=== PATIENT | female | born 1980 | race African-American/Black ===

== ENCOUNTER → 2021-11-17 12:59 | Outpatient (BNVA) | payer MEDICARE, MEDICAID, SELFPAY | PROVIDERS: PCP Physician Assistant Medical; Visit Provider Psychiatry & Neurology Neurology | DX: P14.0 Erb's paralysis due to birth injury (principal); F48.8 Other specified nonpsychotic mental disorders | CPT/HCPCS: 99202 ==

== ENCOUNTER 2024-07-16 12:57 | Inpatient (IN) | payer MEDICARE, MEDICAID, SELFPAY ==
[2024-07-16 13:03] VITALS: BP 110/68; PULSE 72; RESP 19; TEMP 36.6; O2SAT 98; BMI 34.1
--- NOTE | 2024-07-16 13:04 | ED_ITS ---
HPI - General Adult General Chief complaint: Psychiatric Symptoms Stated complaint: depression, SI Time Seen by Provider: 07/16/24 13:25 Source: patient, RN notes reviewed and old records reviewed Mode of arrival: ambulatory Limitations: no limitations History of Present Illness ED Provider: Fidelina ALLEN narrative: Patient is a 43-year-old female with history of DM, bipolar 1 disorder, Erbs paralysis, anemia, depression presenting to the emergency department with complaint of depression and suicidal ideation for the past few weeks, worsening over the weekend. States that she had to call the suicide hotline several times on Tuesday. Saw primary care provider this morning who felt patient should present to the emergency department. Patient reports recent inpatient admission for depression at [facility] around 1 week ago. She did not feel that admission was helpful. She also states that she was started on Wellbutrin 2 weeks ago but discontinued this on her own as she felt it was worsening her depression, reports has been compliant with her other medications. Denies homicidal ideation, auditory or visual hallucinations. Denies any physical complaints. MD complaint: depression, suicidal ideation Onset (ago): week(s) Related Data Home Medications ?Medication ?Instructions ?Recorded ?Confirmed amantadine HCl 100 mg capsule 100 mg PO BID 11/17/21 11/17/21 insulin glargine 100 unit/mL (3 unit subcut 11/17/21 11/17/21 mL) subcutaneous pen (Lantus Solostar U-100 Insulin) lisinopril 20 mg tablet 20 mg PO DAILY 11/17/21 11/17/21 metformin 1,000 mg tablet 1,000 mg PO BID 11/17/21 11/17/21 pen needle, diabetic 32 gauge x #50 ea 11/17/21 11/17/21 (BD Ira 2nd Gen Pen Needle) Allergies Allergy/AdvReac Type Severity Reaction Status Date / Time cat dander [CATS] Allergy Unknown Unknown Verified 07/16/24 13:03 HAYFEVER Allergy Unknown Unknown Uncoded 07/16/24 13:03 Review of Systems 2 Review of Systems: As per HPI Yes all other systems are reviewed and are negative Constitutional: Constitutional: Reports as per HPI [facility] Past Medical History Medical History (Updated 07/16/24 @ 15:34 by Kwasi Loyola DO) Tardive dyskinesia Anemia 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 Diabetes Bipolar 1 disorder Depression Aftercare following left ankle joint replacement surgery Family History Family History Mother Kidney disease Father Pacemaker Social History Social History Alcohol intake: never Patient Tobacco Use Status: Never used Tobacco Advance Directives: No Advance Directives Information Provided: No Do you have a plan to hurt others: No Plan Physical Exam ED Vital Signs: Vital Signs - 24 hr 07/16/24 13:03 07/16/24 13:26 Temperature 98 F 97.7 F Pulse Rate 72 82 Respiratory Rate 19 16 Blood Pressure 110/68 113/71 Pulse Oximetry 98 100 Oxygen Delivery Method Room Air Room Air BMI result Body Mass Index 34.1 Vital signs have been reviewed and appear to be correct. Blood pressure normal. Heart rate normal. Respiratory rate normal. Temperature normal. Oxygen saturation normal. Const General: cooperative, healthy appearing and no acute distress Orientation/consciousness: oriented to person, oriented to place, oriented to time and patient oriented x3 Limitations: no limitations HENMT Head: Yes normocephalic and Yes atraumatic Ears: external ears normal General nose exam: Normal external nose present Face and sinus: Yes face symmetric Mouth: oropharynx normal and moist mucous membranes Throat: Yes uvula midline Eyes Pupils: Equal, round and reactive pupils present Neck Neck: Yes normal visual inspection and Yes supple Resp Effort & Inspection: normal respiratory effort and able to speak in complete sentences Auscultation: clear to auscultation bilaterally Cardio Rate: regular rate Rhythm: regular rhythm Heart sounds: S1 normal heart sound present and S2 normal heart sound present GI Palpation (GI): Soft to palpation and nontender Auscultation: normoactive bowel sounds General: Yes no CVA tenderness Back/Spine/Pelvis Back: no CVA tenderness Skin General skin exam: elasticity normal and turgor normal Neuro General: oriented to person, oriented to place, oriented to time, patient oriented x3, moves all extremities, no focal motor deficits and CN's II-XI intact bilaterally Cranial nerves: Yes Equal, round and reactive pupils present Cognition (Neuro): normal cognition Extrem General: Yes full ROM, Yes no pedal edema and Yes no calf tenderness Psych Appearance: grossly normal Mental Status: mental status grossly normal Speech and movement: Normal speech and movement present Affect: Sad affect present and Blunted affect present Attitude: cooperative Thought process: Normal thought process present Thought content: Suicidality present, no homicidality, no delusions and no hallucinations Insight: Fair insight present (Psych) Judgement: Fair judgement present (Psych) Course Course Course Narrative: RME, this is a rapid medical exam performed by Andrew Escudero please refer to primary provider for complete H&P- 43 year old female presents for evaluation of depression with SI. Plan for medical clearance and care team consult Medical Decision Making Medical Decision Making [facility] Narrative: Patient is a 43-year-old female with history of DM, bipolar 1 disorder, Erbs paralysis, anemia, depression presenting to the emergency department with complaint of depression and suicidal ideation for the past few weeks, worsening over the weekend. On exam patient is awake, A+Ox3, VS WNL, afebrile, normal neurological exam without focal deficits, physical exam findings as above. Given reported symptoms and physical exam findings, initial differential includes but is not limited to depression, adverse medication reaction, suicidal ideation. Plan for medical clearance then CARE team evaluation. Labs unremarkable. Will medically clear patient for CARE team eval and place on physician observation. Differential Diagnosis Differential Diagnoses: The differential diagnosis associated with the presentation includes as per [facility] Admission/Observation Consideration of admission/observation: Escalation of care including admission/observation considered Consult Healthcare Provider Management of the patient was discussed with: Behavioral Health Provider Lab Data [facility] Lab Attestation statement: I reviewed the patient's lab results. as per [facility] 07/16/24 13:36 07/16/24 13:36 Labs: Lab Results 07/16/24 Range/Units 13:36 WBC 4.9 (4.8-10.8) X10*3/uL RBC 4.58 (4.20-5.50) X10*6/uL Hgb 12.5 (12.0-16.0) g/dl Hct 38.1 (37.0-47.0) % MCV 83.2 (80.0-98.0) fL MCH 27.3 (27.0-33.0) pg MCHC 32.8 (31.0-35.0) g/dl RDW 15.4 (11.0-16.0) % Plt Count 216 (160-400) X10*3/uL MPV 10.6 (9.4-12.3) fL Immature Gran % (Auto) 0.2 (0.0-0.4) % Neut % (Auto) 51.6 (45-73) % Lymph % (Auto) 36.3 (20-40) % [place] % (Auto) 8.2 (2-11) % Eos % (Auto) 3.1 (0-4) % Baso % (Auto) 0.6 (0-2) % Lymph # (Auto) 1.8 (1.2-4.9) X10*3/uL [place] # (Auto) 0.4 (0.1-1.2) X10*3/uL Eos # (Auto) 0.2 (0.0-0.4) X10*3/uL Baso # (Auto) 0.0 (0.0-0.2) X10*3/uL Abs Immat Gran (auto) 0.01 (0.00-0.03) X10*3/uL Absolute Neuts (auto) 2.5 (2.0-8.3) x10*3/uL Absolute Nucleated RBC 0.000 (0.0-0.012) X10*3/uL Nucleated RBC % (auto) 0.0 (0.0-0.2) /100WBC Sodium 139 (135-145) mmol/L Potassium 3.7 (3.3-5.1) mmol/L Chloride 106 (96-108) mmol/L Carbon Dioxide 25 (22-29) mmol/L Anion Gap 12 (12-20) BUN 11 (9-16) mg/dL Creatinine 0.92 (0.5-1.4) mg/dL Estim Creat Clear Calc 94.2 Estimated GFR > 60 Random Glucose 78 (60-115) mg/dL Calcium 9.0 (8.4-10.2) mg/dL Total Bilirubin 0.4 (0.0-1.0) mg/dL AST 27 (5-31) U/L ALT 32 H (0-31) U/L Alkaline Phosphatase 52 (39-117) U/L Total Protein 6.9 (6.5-8.0) g/dL Albumin 4.1 (3.5-5.0) g/dL Salicylates < 5.0 L (15-30) mg/dL Acetaminophen < 3 (<30) mcg/mL Ethyl Alcohol < 10 mg/dL External Record Review External record reviewed: Inpatient record, Office record and Outpatient record Discharge Plan Discharge Clinical Impression: Depression, Bipolar 1 disorder, Suicidal ideation Prescriptions: No Action metformin 1,000 mg tablet 1,000 mg PO BID amantadine HCl 100 mg capsule 100 mg PO BID insulin glargine [Lantus Solostar U-100 Insulin] 100 unit/mL (3 mL) insulin pen subcut lisinopril 20 mg tablet 20 mg PO DAILY (DME) pen needle, diabetic [BD Ira 2nd Gen Pen Needle] 32 gauge x 5/32 needle See Rx Instructions .ROUTE .MEDSUPPLY Qty: 50 Rx Instructions: As directed Interventions: [place]-Suicide Risk Severity Scale Last Done: 07/16/24 13:26 Print Language: Greenlandic
[2024-07-16 13:26] VITALS: BP 113/71; PULSE 82; RESP 16; TEMP 36.5; O2SAT 100
--- NOTE | 2024-07-16 13:31 | PC.NURSE ---
Addendum entered by Elyssa Holguin RN 07/16/24 13:43: Patient presents from home with increased depression and vague suicidal thoughts. Contracts for safety in this environment. Recently started taking wellbutrin 2 weeks ago which she states increased her depression. Alert and oriented, cooperative with care. Respirations even and non-labored. Abdomen soft, non-tender with positive bowel sounds. Lunch provided. Positive pedal pulses with no edema. Pending care team eval. 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
[2024-07-16 13:43] LABS: MANUAL DIFF FLAG NO
[2024-07-16 13:44] LABS: Basophils Percent Auto 0.6 % (0-2); Eosinophils Absolute Auto 0.2 X10*3/uL (0.0-0.4); Eosinophils Percent Auto 3.1 % (0-4); Hematocrit 38.1 % (37.0-47.0); Hemoglobin 12.5 g/dl (12.0-16.0); Imm Gran Abs Auto 0.01 X10*3/uL (0.00-0.03); Imm Gran Pct Auto 0.2 % (0.0-0.4); Lymphocytes Absolute Auto 1.8 X10*3/uL (1.2-4.9); Lymphocytes Percent Auto 36.3 % (20-40); Mean Corpuscular HGB Conc 32.8 g/dl (31.0-35.0); Mean Corpuscular Hemoglobin 27.3 pg (27.0-33.0); Mean Corpuscular Volume 83.2 fL (80.0-98.0); Mean Platelet Volume 10.6 fL (9.4-12.3); Monocytes Absolute Auto 0.4 X10*3/uL (0.1-1.2); Monocytes Percent Auto 8.2 % (2-11); Neutrophils Absolute Auto 2.5 x10*3/uL (2.0-8.3); Neutrophils Percent Auto 51.6 % (45-73); Platelet Count 216 X10*3/uL (160-400); Red Blood Count 4.58 X10*6/uL (4.20-5.50); Red Cell Distribution Width 15.4 % (11.0-16.0); White Blood Count 4.9 X10*3/uL (4.8-10.8)
[2024-07-16 14:03] LABS: Acetaminophen LAB < 3 mcg/mL (<30); Alanine Aminotransferase 32 U/L (0-31); Albumin Level 4.1 g/dL (3.5-5.0); Alkaline Phosphatase 52 U/L (39-117); Anion Gap 12 (12-20); Aspartate Amino Transferase 27 U/L (5-31); Bilirubin Total 0.4 mg/dL (0.0-1.0); Blood Urea Nitrogen 11 mg/dL (9-16); Carbon Dioxide 25 mmol/L (22-29); Chloride 106 mmol/L (96-108); Creatinine Clr Calc Pharmacy 94.2; Estimated Glomerular Filt Rate > 60; Ethanol < 10 mg/dL; Glucose Random 78 mg/dL (60-115); Potassium 3.7 mmol/L (3.3-5.1); Salicylate < 5.0 mg/dL (15-30); Sodium 139 mmol/L (135-145); Total Protein 6.9 g/dL (6.5-8.0)
--- NOTE | 2024-07-16 15:02 | PC.NURSE ---
Care team at the bedside
[2024-07-16 17:02] LABS: Appearance Urine Clear; Color Urine Yellow; Glucose Urine UA Negative (Negative); Leukocyte Esterase Urine Trace (Negative); Nitrite Urine Negative (Negative); Specific Gravity - Urine 1.025 (1.005-1.025); UMIC TRIGGER UACC YES; Urine Blood Negative (Negative); Urine Ketones Trace mg/dL (Negative); Urine Protein Negative (Neg-Trace)
[2024-07-16 17:05] LABS: Bacteria Urine Trace (None Seen); Hyaline Casts Urine 0-2 /LPF (0-2); RBC Urine 0-2 /HPF (0-2); WBC Urine 0-5 /HPF (0-5)
[2024-07-16 17:06] LABS: UPreg QC Valid YES; Urine Pregnancy NEGATIVE (NEGATIVE)
[2024-07-16 17:12] LABS: Amphetamine Screen Urine Not Detected (Not Detect); Barbiturates, Urine Not Detected (Not Detect); Benzodiazepines Screen Urine Not Detected (Not Detect); Buprenorphine Scr Not Detected (Not Detect); Cannabinoid Screen Urine Not Detected (Not Detect); Cocaine Screen Urine Not Detected (Not Detect); Fentanyl, urine Not Detected (Not Detect); Methadone Screen, Urine Not Detected (Not Detect); Opiate Screen Urine Not Detected (Not Detect); Oxycodone Screen Urine Not Detected (Not Detect); Phencyclidine Screen Urine Not Detected (Not Detect)
--- NOTE | 2024-07-16 18:43 | PC.NURSE ---
Report given to Constanza ANDRE on M3. Will be transitioning to M3 fir continued mental health care.
[2024-07-16 19:05] VITALS: BP 108/76; PULSE 87; RESP 18; TEMP 36.4; O2SAT 98; BMI 34.4
--- NOTE | 2024-07-16 19:05 | PHA.MEDREC ---
Pharmacy Consult ? Medication Reconciliation Pharmacy has reviewed the medication reconciliation completed by nursing.
--- NOTE | 2024-07-16 19:13 | PC.NURSE ---
Lina arrived on M3 from [facility] on a CV for treatment of unspecified depression. Skin check completed with LYUDMILA and Rosana Burks RN and was unremarkable. She reports a medical history of DM type 2, ERBS paralysis, anemia and tardive dyskinesia. She reports seeing a commercial lines sales executive. She denied SI/HI/AVH and reports being able to come to staff if these thoughts occur. Admission passed to oncoming nurse.
[2024-07-16 21:00] VITALS: BP 121/75; PULSE 75; RESP 16; TEMP 36.4; O2SAT 100
[2024-07-16] MEDS: Melatonin 3 MG TABLET 6 MG PO (21:47)
[2024-07-16] MEDS: amantadine HCL 100 MG CAPSULE PO (21:47)
[2024-07-16] MEDS: Divalproex Sodium ER 500 MG TAB.ER.24H PO (21:47)
[2024-07-16] MEDS: Sennosides 8.6 MG TABLET 17.2 MG PO (21:48)
--- NOTE | 2024-07-17 01:25 | PC.ADMIT ---
patient was admitted on 07/16/24 from the [facility] at 1900. CV with diagnoses of bipolar d/o, depression and medical diagnoses of tardive dyskensia, type 2 diabetes, Erb's palsy effecting her L arm with limits to ROM-patient reports she is able to care for self despite some limits. tremors in R hand noted. engaged with admission process, oriented X4. this appears to be the first [facility] hospitalization but reports HX of inpatient stays including most recently at [facility]. reports that she continues to be depressed and feeling unsafe at home. had started on wellbutrin but stopped taking after her dc from [facility] reporting ''it was not helpful'' ''what I want to be if safe at home, I want to feel safe there'' reports feeling safe in the hospital. denies A/V hallucinations. no agitation or restlessness. rates feelings of depression 10/10. ''I have no energy or motivation'' ''I feel stuck'' denies feelings of anxiety. no alcohol or substance use. skin check was done on admission. medication reconciliation was completed in the ER. patient reviewed medications that have been ordered and agrees.
[2024-07-17 07:50] VITALS: BP 111/80; PULSE 80; RESP 16; TEMP 36.6; O2SAT 98
[2024-07-17 08:30] LABS: Estimated Average Glucose 105 mg/dL; Hemoglobin A1C 115.9992 umol/L; Hemoglobin A1c % 5.3 % (<6.0); Total Hemoglobin (HGBA1C) 3346.8553 umol/L
[2024-07-17 08:44] LABS: Alanine Aminotransferase 27 U/L (0-31); Albumin Level 4.1 g/dL (3.5-5.0); Alkaline Phosphatase 55 U/L (39-117); Anion Gap 13 (12-20); Aspartate Amino Transferase 26 U/L (5-31); Bilirubin Total 0.4 mg/dL (0.0-1.0); Blood Urea Nitrogen 12 mg/dL (9-16); Carbon Dioxide 20 mmol/L (22-29); Chloride 108 mmol/L (96-108); Cholesterol 177 mg/dL (<200); Creatinine Clr Calc Pharmacy 93.6; Estimated Glomerular Filt Rate > 60; Glucose Random 81 mg/dL (60-115); HDL Cholesterol 62 mg/dL (>40); LDL Cholesterol Calculated 99 mg/dL (<100); Potassium 3.9 mmol/L (3.3-5.1); Sodium 137 mmol/L (135-145); Total Protein 6.9 g/dL (6.5-8.0); Triglycerides 80 mg/dL (<150)
[2024-07-17] MEDS: Sennosides 8.6 MG TABLET 17.2 MG PO ×2 (08:50→20:46)
[2024-07-17] MEDS: amantadine HCL 100 MG CAPSULE PO ×2 (08:50→20:46)
[2024-07-17] MEDS: Divalproex Sodium ER 500 MG TAB.ER.24H PO (08:50)
[2024-07-17] MEDS: Cariprazine HCl 3 MG CAPSULE PO (08:50)
[2024-07-17] MEDS: polyethylene glycoL 3350 17 GM POWD.PACK PO (08:58)
[2024-07-17 09:01] LABS: Thyroid Stimulating Hormone 1.92 uIU/mL (0.32-4.0)
--- NOTE | 2024-07-17 09:07 | P.HPPS_ITS ---
HPI Date of Service: 07/17/24 Chief Complaint: SI Sources of Information: patient interviewed, chart reviewed and crisis/core team assessment reviewed HPI Subjective Notes: Richards Warning and Conditional Voluntary Narrative: Patient is a 43-year-old female with history of bipolar disorder who self presented to [facility] due to suicidal ideation with a plan to slit her wrist secondary to increased depression. Per crisis report, patient presented to ER endorsing suicidal ideation with a plan to slit her wrists. Patient reports that she was at her PCP appointment and she expressed to her provider that she was suicidal with a plan and was recommended to go to [facility]. Patient reports increasing depression and intrusive thoughts geared towards harming herself. Patient was recently at [facility] and feels it was not helpful. Patient reports she has been feeling suicidal for 2 weeks. She reports she was placed on Wellbutrin and feels that it made things worse. denies HI/VH/AH. She reports sleep and appetite are okay. Denies substance abuse. History of alcohol use disorder but has been sober for the last 9 years. During admission assessment, patient presents alert and oriented x3. Calm and cooperative. Patient reports feeling depressed; patient stated, I have been depressed for a couple of months and started feeling suicidal. I have not felt that way in a long time. I was just inpatient at [facility] and then gave me Wellbutrin, but it made me feel worse and more suicidal. I had a doctor's appointment on Tuesday and they said I should go inpatient . Patient reports she feels stuck in life and would like to move closer to family in [place] however, can not afford to financially. denies HI/VH/AH. Patient reports she has outpatient psychiatric providers through [facility]. History of multiple inpatient psychiatric hospitalizations. Denies substance use. She reports sleep and appetite are good. Discussed medications; patient stated that she does not want any new medications introduced however, would like her Depakote increased. Valproic acid level 60.8 on 07/17/24. Past Psychiatric History: History of multiple inpatient psychiatric hospitalizations. History of SIB via superficially cutting. Last time was 15 years ago. History of suicide attempt via overdose on medications in 2013. Outpatient psychiatric providers through [facility]. 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 Single. No kids. Disability. Works part-time as a office coordinator receptionist. Bachelor's degree in [place]. Substance History: Denies Trauma History: Denies Diagnostics Vital Signs (24Hr): Vital Signs - 24 hr 07/16/24 13:03 07/16/24 13:26 07/16/24 19:05 Temperature 98 F 97.7 F 97.5 F Pulse Rate 72 82 87 Respiratory Rate 19 16 18 Blood Pressure 110/68 113/71 108/76 Pulse Oximetry 98 100 98 Oxygen Delivery Method Room Air Room Air Room Air 07/16/24 21:00 07/17/24 07:50 Temperature 97.6 F 97.8 F Pulse Rate 75 80 Respiratory Rate 16 16 Blood Pressure 121/75 111/80 Pulse Oximetry 100 98 Oxygen Delivery Method Room Air Room Air BMI result Body Mass Index 34.4 Labs 07/16/24 13:36 07/17/24 08:09 Labs: Laboratory Results - last 48 hr 07/16/24 07/16/24 07/17/24 13:36 16:45 08:09 WBC 4.9 RBC 4.58 Hgb 12.5 Hct 38.1 MCV 83.2 MCH 27.3 MCHC 32.8 RDW 15.4 Plt Count 216 MPV 10.6 Immature Gran % (Auto) 0.2 Neut % (Auto) 51.6 Lymph % (Auto) 36.3 [place] % (Auto) 8.2 Eos % (Auto) 3.1 Baso % (Auto) 0.6 Lymph # (Auto) 1.8 [place] # (Auto) 0.4 Eos # (Auto) 0.2 Baso # (Auto) 0.0 Abs Immat Gran (auto) 0.01 Absolute Neuts (auto) 2.5 Absolute Nucleated RBC 0.000 Nucleated RBC % (auto) 0.0 Sodium 139 137 Potassium 3.7 3.9 Chloride 106 108 Carbon Dioxide 25 20 L Anion Gap 12 13 BUN 11 12 Creatinine 0.92 0.93 Estim Creat Clear Calc 94.2 93.6 Estimated GFR > 60 > 60 Random Glucose 78 81 Estimat Average Glucose 105 Hemoglobin A1c % 5.3 Calcium 9.0 9.0 Total Bilirubin 0.4 0.4 AST 27 26 ALT 32 H 27 Alkaline Phosphatase 52 55 Total Protein 6.9 6.9 Albumin 4.1 4.1 Triglycerides 80 Cholesterol 177 LDL Cholesterol, Calc 99 HDL Cholesterol 62 TSH 1.92 Urine Color Yellow Urine Appearance Clear Urine pH 6.0 Ur Specific [place] 1.025 Urine Protein Negative Urine Glucose (UA) Negative Urine Ketones Trace Urine Blood Negative Urine Nitrite Negative Ur Leukocyte Esterase Trace H Urine RBC 0-2 Urine WBC 0-5 Ur Squamous Epith Cells 3-5 Urine Bacteria Trace Hyaline Casts 0-2 Urine Test NEGATIVE Salicylates < 5.0 L Urine Opiates Screen Not Detected Ur Buprenorphine Scrn Not Detected Ur Oxycodone Screen Not Detected Urine Methadone Screen Not Detected Urine Fentanyl Screen Not Detected Acetaminophen < 3 Ur Barbiturates Screen Not Detected Ur Phencyclidine Scrn Not Detected Ur Amphetamines Screen Not Detected U Benzodiazepines Scrn Not Detected Urine Cocaine Screen Not Detected U Marijuana (THC) Screen Not Detected Ethyl Alcohol < 10 Meds/Allergies Meds Home Medications ?Medication ?Instructions ?Recorded ?Confirmed ?Type amantadine HCl 100 mg capsule 100 mg PO BID 11/17/21 07/16/24 History cariprazine 3 mg capsule (Vraylar) 3 mg PO QAM 07/16/24 07/16/24 History divalproex 500 mg tablet,extended 500 mg PO BID 07/16/24 07/16/24 History release 24 hr melatonin 3 mg tablet 6 mg PO QPM 07/16/24 07/16/24 History polyethylene glycol 3350 17 17 g PO DAILY PRN Constipation 07/16/24 07/16/24 History gram/dose oral powder (Miralax) sennosides 8.6 mg tablet (senna) 17.2 mg PO BID 07/16/24 07/16/24 History tirzepatide 7.5 mg/0.5 mL 7.5 mg subcut QWEEK 07/16/24 07/16/24 History subcutaneous pen injector (Mounjaro) Allergies Allergies Allergy/AdvReac Type Severity Reaction Status Date / Time cat dander [CATS] Allergy Unknown Unknown Verified 07/16/24 13:03 HAYFEVER Allergy Unknown Unknown Uncoded 07/16/24 13:03 Mental Status Exam Mental Status Exam Narrative: Pt is alert and oriented; behavior is cooperative and calm; dressed in casual attire; mood is described as depressed ; eye contact appropriate; Speech is normal rate, volume and not pressured; thought process is organized; Thought content is on tx; denies HI/VH/AH. Assessment & Plan Assessment & Plan (1) Bipolar 1 disorder: Status: Acute Code(s): F31.9 - Bipolar disorder, unspecified Plan Patient is a 43-year-old female with history of bipolar disorder who self presented to [facility] due to suicidal ideation with a plan to slit her wrist secondary to increased depression. Plan: CV 15 minute safety checks Continue home medications obtain collateral encourage groups Increase Depakote to 1500mg PO bedtime discharge planning Patient educated on: diagnosis and medication risk/benefits Reason for continued inpatient stay Substantial Risk for: harm to self and med/psych decompensation Statement Statement: I have reviewed the history and physical and performed a pertinent examination on my patient. No changes have occurred unless specified. If the History and Physical was not performed prior to admission, the Hospitalist's service will be consulted for completing the admission physical. Time Spent With Patient Time: Total time managing care of this patient today _60___ minutes.
[2024-07-17 09:15] LABS: Folate 7.3 ng/mL (> or = 4.0); Vitamin B12 595 pg/mL (200-900)
[2024-07-17 12:19] LABS: Ammonia 28 umol/L (13-55)
[2024-07-17 12:24] LABS: Valproate 60.8 mcg/mL (50.0-100.0)
[2024-07-17 12:25] LABS: Alanine Aminotransferase 29 U/L (0-31); Albumin Level 4.1 g/dL (3.5-5.0); Alkaline Phosphatase 52 U/L (39-117); Aspartate Amino Transferase 24 U/L (5-31); Bilirubin Direct 0.1 mg/dL (0.0-0.5); Bilirubin Total 0.4 mg/dL (0.0-1.0); Total Protein 6.5 g/dL (6.5-8.0)
--- NOTE | 2024-07-17 18:16 | PC.NURSE ---
Metformin prescription confirmed with [facility] [phone]. Received quantity of 270 03/06/24.
[2024-07-17 20:00] VITALS: BP 109/66; PULSE 76; RESP 16; TEMP 36.4; O2SAT 98
[2024-07-17] MEDS: Melatonin 3 MG TABLET 6 MG PO (20:46)
[2024-07-17] MEDS: Divalproex Sodium ER 500 MG TAB.ER.24H 1000 MG PO (20:46)
[2024-07-17] MEDS: Magnesium Hydrox/Alum Hydrox 30 ML ORAL.SUSP PO (20:58)
[2024-07-18 08:00] VITALS: BP 116/74; PULSE 86; RESP 16; TEMP 36.4; O2SAT 99
[2024-07-18] MEDS: Cariprazine HCl 3 MG CAPSULE PO (08:28)
[2024-07-18] MEDS: Sennosides 8.6 MG TABLET 17.2 MG PO ×2 (08:28→21:10)
[2024-07-18] MEDS: amantadine HCL 100 MG CAPSULE PO ×2 (08:28→21:10)
[2024-07-18] MEDS: Acetaminophen 325 MG TABLET 650 MG PO (09:28)
[2024-07-18 12:24] LABS: Glucose, Whole Blood 81 mg/dL (60-115)
--- NOTE | 2024-07-18 13:40 | HO.PSYCHPN ---
Subjective Subjective Date of Service: 07/18/24 Reason For Visit: SI Subjective Notes: Conditional Voluntary Interim History: Attending groups. Patient reports feeling better that I'm out of the house and around people ; pt reports it is difficult to be alone at home. Pt reports she spoke with her family and her father and sister plan to come and stay with her. showered. per nursing, slept 8 hours. denies SI/HI/VH/AH. Will redraw valproic acid level on 07/20/24. Continue current tx plan. Medication Compliance: Yes Side effects from medications: No Attending Groups: Yes Mental Status Exam Mental Status Exam Narrative: Pt is alert and oriented; behavior is cooperative and calm; dressed in casual attire; mood is described as better ; eye contact appropriate; Speech is normal rate, volume and not pressured; thought process is organized; Thought content is on tx; denies SI/HI/VH/AH. Diagnostics Vital Signs (24Hr): Vital Signs - 24 hr 07/17/24 20:00 07/18/24 08:00 Temperature 97.6 F 97.6 F Pulse Rate 76 86 Respiratory Rate 16 16 Blood Pressure 109/66 116/74 Pulse Oximetry 98 99 Oxygen Delivery Method Room Air Room Air BMI result Body Mass Index 34.4 Labs 07/16/24 13:36 07/17/24 08:09 Labs: Laboratory Results - last 48 hr 07/16/24 07/16/24 07/17/24 13:36 16:45 08:09 WBC 4.9 RBC 4.58 Hgb 12.5 Hct 38.1 MCV 83.2 MCH 27.3 MCHC 32.8 RDW 15.4 Plt Count 216 MPV 10.6 Immature Gran % (Auto) 0.2 Neut % (Auto) 51.6 Lymph % (Auto) 36.3 [place] % (Auto) 8.2 Eos % (Auto) 3.1 Baso % (Auto) 0.6 Lymph # (Auto) 1.8 [place] # (Auto) 0.4 Eos # (Auto) 0.2 Baso # (Auto) 0.0 Abs Immat Gran (auto) 0.01 Absolute Neuts (auto) 2.5 Absolute Nucleated RBC 0.000 Nucleated RBC % (auto) 0.0 Sodium 139 137 Potassium 3.7 3.9 Chloride 106 108 Carbon Dioxide 25 20 L Anion Gap 12 13 BUN 11 12 Creatinine 0.92 0.93 Estim Creat Clear Calc 94.2 93.6 Estimated GFR > 60 > 60 POC Glucose Random Glucose 78 81 Estimat Average Glucose 105 Hemoglobin A1c % 5.3 Calcium 9.0 9.0 Total Bilirubin 0.4 0.4 Direct Bilirubin AST 27 26 ALT 32 H 27 Alkaline Phosphatase 52 55 Ammonia Total Protein 6.9 6.9 Albumin 4.1 4.1 Triglycerides 80 Cholesterol 177 LDL Cholesterol, Calc 99 HDL Cholesterol 62 Vitamin B12 595 Folate 7.3 TSH 1.92 Urine Color Yellow Urine Appearance Clear Urine pH 6.0 Ur Specific [place] 1.025 Urine Protein Negative Urine Glucose (UA) Negative Urine Ketones Trace Urine Blood Negative Urine Nitrite Negative Ur Leukocyte Esterase Trace H Urine RBC 0-2 Urine WBC 0-5 Ur Squamous Epith Cells 3-5 Urine Bacteria Trace Hyaline Casts 0-2 Urine Test NEGATIVE Salicylates < 5.0 L Urine Opiates Screen Not Detected Ur Buprenorphine Scrn Not Detected Ur Oxycodone Screen Not Detected Urine Methadone Screen Not Detected Urine Fentanyl Screen Not Detected Acetaminophen < 3 Ur Barbiturates Screen Not Detected Valproic Acid Ur Phencyclidine Scrn Not Detected Ur Amphetamines Screen Not Detected U Benzodiazepines Scrn Not Detected Urine Cocaine Screen Not Detected U Marijuana (THC) Screen Not Detected Ethyl Alcohol < 10 07/17/24 07/18/24 11:55 12:20 WBC RBC Hgb Hct MCV MCH MCHC RDW Plt Count MPV Immature Gran % (Auto) Neut % (Auto) Lymph % (Auto) [place] % (Auto) Eos % (Auto) Baso % (Auto) Lymph # (Auto) [place] # (Auto) Eos # (Auto) Baso # (Auto) Abs Immat Gran (auto) Absolute Neuts (auto) Absolute Nucleated RBC Nucleated RBC % (auto) Sodium Potassium Chloride Carbon Dioxide Anion Gap BUN Creatinine Estim Creat Clear Calc Estimated GFR POC Glucose 81 Random Glucose Estimat Average Glucose Hemoglobin A1c % Calcium Total Bilirubin 0.4 Direct Bilirubin 0.1 AST 24 ALT 29 Alkaline Phosphatase 52 Ammonia 28 Total Protein 6.5 Albumin 4.1 Triglycerides Cholesterol LDL Cholesterol, Calc HDL Cholesterol Vitamin B12 Folate TSH Urine Color Urine Appearance Urine pH Ur Specific [place] Urine Protein Urine Glucose (UA) Urine Ketones Urine Blood Urine Nitrite Ur Leukocyte Esterase Urine RBC Urine WBC Ur Squamous Epith Cells Urine Bacteria Hyaline Casts Urine Test Salicylates Urine Opiates Screen Ur Buprenorphine Scrn Ur Oxycodone Screen Urine Methadone Screen Urine Fentanyl Screen Acetaminophen Ur Barbiturates Screen Valproic Acid 60.8 Ur Phencyclidine Scrn Ur Amphetamines Screen U Benzodiazepines Scrn Urine Cocaine Screen U Marijuana (THC) Screen Ethyl Alcohol Medications Medications Current Medications Acetaminophen (Acetaminophen 325 Mg Tablet) 650 mg PO Q6H PRN PRN Reason: Headache/Pain, Scale 1-10 Last Admin: 07/18/24 09:28 Dose: 650 mg Al Hydroxide/Mg Hydroxide (Magnesium Hydrox/Alum Hydrox 30 Ml Oral.Susp) 30 ml PO Q6H PRN PRN Reason: Heartburn/Nausea Last Admin: 07/17/24 20:58 Dose: 30 ml Amantadine HCl (Amantadine Hcl 100 Mg Capsule) 100 mg PO BID [facility] Last Admin: 07/18/24 08:28 Dose: 100 mg Cariprazine (Cariprazine Hcl 3 Mg Capsule) 3 mg PO DAILY [facility] Last Admin: 07/18/24 08:28 Dose: 3 mg Divalproex Sodium (Divalproex Sodium Er 500 Mg Tab.Er.24h) 1,500 mg PO BEDTIME [facility] Hydroxyzine HCl (Hydroxyzine Hcl 25 Mg Tablet) 25 mg PO Q6H PRN PRN Reason: mild anxiety Magnesium Hydroxide (Milk Of Magnesia 30 Ml Oral.Susp) 30 ml PO DAILY PRN PRN Reason: Constipation Melatonin (Melatonin 3 Mg Tablet) 6 mg PO BEDTIME [facility] Last Admin: 07/17/24 20:46 Dose: 6 mg Metformin HCl (Metformin Hcl 500 Mg Tablet) 500 mg PO BIDWM [facility] Nicotine Polacrilex (Nicotine Polacrilex 2 Mg Gum) 4 mg BUCCAL Q2H PRN PRN Reason: Nicotine Cravings Polyethylene Glycol (Polyethylene Glycol 3350 17 Gm Powd.Pack) 17 gm PO DAILY PRN PRN Reason: Constipation Last Admin: 07/17/24 08:58 Dose: 17 gm Senna (Sennosides 8.6 Mg Tablet) 17.2 mg PO BID [facility] Last Admin: 07/18/24 08:28 Dose: 17.2 mg Trazodone HCl (Trazodone Hcl 50 Mg Tablet) 50 mg PO BEDTIME MRX1 PRN PRN Reason: Insomnia Allergies Allergies Allergy/AdvReac Type Severity Reaction Status Date / Time cat dander [CATS] Allergy Unknown Unknown Verified 07/16/24 13:03 HAYFEVER Allergy Unknown Unknown Uncoded 06/09/25 13:03 Assessment & Plan Assessment & Plan (1) Bipolar 1 disorder: Status: Acute Code(s): F31.9 - Bipolar disorder, unspecified Plan Patient is a 43-year-old female with history of bipolar disorder who self [place] [facility] [place] to suicidal ideation with a plan to slit her wrist secondary to increased depression. Plan: CV 15 minute safety checks Continue home medications obtain collateral encourage groups Increase Depakote to 1500mg PO bedtime discharge planning 07/18: Attending groups. Patient reports feeling better that I'm out of the house and around people ; pt reports it is difficult to be alone at home. Pt reports she spoke with her family and her father and sister plan to come and stay with her. showered. per nursing, slept 8 hours. denies SI/HI/VH/AH. Will redraw valproic acid level on 07/20/24. Continue current tx plan. Patient educated on: diagnosis, medication risk/benefits and therapeutic strategies Reason for continued inpatient stay Substantial Risk for: med/psych decompensation Time Spent With Patient Time: Total time managing care of this patient today _20___ minutes.
[2024-07-18] MEDS: metFORMIN HCl 500 MG TABLET PO (17:04)
[2024-07-18 19:27] VITALS: BP 136/74; PULSE 79; RESP 16; TEMP 36.3
[2024-07-18] MEDS: Melatonin 3 MG TABLET 6 MG PO (21:10)
[2024-07-18] MEDS: Divalproex Sodium ER 500 MG TAB.ER.24H 1500 MG PO (21:10)
[2024-07-18 21:13] LABS: Glucose, Whole Blood 111 mg/dL (60-115)
[2024-07-18] MEDS: polyethylene glycoL 3350 17 GM POWD.PACK PO (21:17)
[2024-07-19 07:00] VITALS: BMI 34.6
[2024-07-19 08:16] LABS: Glucose, Whole Blood 75 mg/dL (60-115)
[2024-07-19 08:30] VITALS: BP 127/60; PULSE 94; TEMP 36.4; O2SAT 99
[2024-07-19] MEDS: amantadine HCL 100 MG CAPSULE PO ×2 (09:24→21:51)
[2024-07-19] MEDS: Sennosides 8.6 MG TABLET 17.2 MG PO ×2 (09:24→21:51)
[2024-07-19] MEDS: Cariprazine HCl 3 MG CAPSULE PO (09:24)
[2024-07-19] MEDS: metFORMIN HCl 500 MG TABLET PO ×2 (09:25→17:19)
--- NOTE | 2024-07-19 12:00 | P.PNPSI_ITS ---
Subjective Subjective Date of Service: 07/19/24 Reason For Visit: SI Subjective Notes: Conditional Voluntary Interim History: Patient reports feeling less depressed ; attending groups. denies SI/HI/VH/AH. Will redraw valproic acid level on 07/20/24. focused on discharged; she is hoping to leave Tuesday or Tuesday. Continue current tx plan. Medication Compliance: Yes Side effects from medications: No Attending Groups: Yes Mental Status Exam Mental Status Exam Narrative: Pt is alert and oriented; behavior is cooperative and calm; dressed in casual attire; mood is described as better ; eye contact appropriate; Speech is normal rate, volume and not pressured; thought process is organized; Thought content is on discharge; denies SI/HI/VH/AH. Diagnostics Vital Signs (24Hr): Vital Signs - 24 hr 07/18/24 19:27 07/19/24 08:30 Temperature 97.3 F 97.5 F Pulse Rate 79 94 Respiratory Rate 16 Blood Pressure 136/74 127/60 Pulse Oximetry 99 Oxygen Delivery Method Room Air BMI result Body Mass Index 34.6 Labs 07/16/24 13:36 07/17/24 08:09 Labs: Laboratory Results - last 48 hr 07/17/24 07/18/24 07/18/24 11:55 12:20 21:09 POC Glucose 81 111 Total Bilirubin 0.4 Direct Bilirubin 0.1 AST 24 ALT 29 Alkaline Phosphatase 52 Ammonia 28 Total Protein 6.5 Albumin 4.1 Valproic Acid 60.8 07/19/24 08:03 POC Glucose 75 Total Bilirubin Direct Bilirubin AST ALT Alkaline Phosphatase Ammonia Total Protein Albumin Valproic Acid Medications Medications Current Medications Acetaminophen (Acetaminophen 325 Mg Tablet) 650 mg PO Q6H PRN PRN Reason: Headache/Pain, Scale 1-10 Last Admin: 07/18/24 09:28 Dose: 650 mg Al Hydroxide/Mg Hydroxide (Magnesium Hydrox/Alum Hydrox 30 Ml Oral.Susp) 30 ml PO Q6H PRN PRN Reason: Heartburn/Nausea Last Admin: 07/17/24 20:58 Dose: 30 ml Amantadine HCl (Amantadine Hcl 100 Mg Capsule) 100 mg PO BID [facility] Last Admin: 07/19/24 09:24 Dose: 100 mg Cariprazine (Cariprazine Hcl 3 Mg Capsule) 3 mg PO DAILY [facility] Last Admin: 07/19/24 09:24 Dose: 3 mg Divalproex Sodium (Divalproex Sodium Er 500 Mg Tab.Er.24h) 1,500 mg PO BEDTIME [facility] Last Admin: 07/18/24 21:10 Dose: 1,500 mg Hydroxyzine HCl (Hydroxyzine Hcl 25 Mg Tablet) 25 mg PO Q6H PRN PRN Reason: mild anxiety Magnesium Hydroxide (Milk Of Magnesia 30 Ml Oral.Susp) 30 ml PO DAILY PRN PRN Reason: Constipation Melatonin (Melatonin 3 Mg Tablet) 6 mg PO BEDTIME [facility] Last Admin: 07/18/24 21:10 Dose: 6 mg Metformin HCl (Metformin Hcl 500 Mg Tablet) 500 mg PO BIDWM [facility] Last Admin: 07/19/24 09:25 Dose: 500 mg Nicotine Polacrilex (Nicotine Polacrilex 2 Mg Gum) 4 mg BUCCAL Q2H PRN PRN Reason: Nicotine Cravings Polyethylene Glycol (Polyethylene Glycol 3350 17 Gm Powd.Pack) 17 gm PO DAILY PRN PRN Reason: Constipation Last Admin: 07/18/24 21:17 Dose: 17 gm Senna (Sennosides 8.6 Mg Tablet) 17.2 mg PO BID [facility] Last Admin: 07/19/24 09:24 Dose: 17.2 mg Trazodone HCl (Trazodone Hcl 50 Mg Tablet) 50 mg PO BEDTIME MRX1 PRN PRN Reason: Insomnia Allergies Allergies Allergy/AdvReac Type Severity Reaction Status Date / Time cat dander [CATS] Allergy Unknown Unknown Verified 07/16/24 13:03 HAYFEVER Allergy Unknown Unknown Uncoded 07/16/24 13:03 Assessment & Plan Assessment & Plan (1) Bipolar 1 disorder: Status: Acute Code(s): F31.9 - Bipolar disorder, unspecified Plan Patient is a 43-year-old female with history of bipolar disorder who self presented to [facility] due to suicidal ideation with a plan to slit her wrist secondary to increased depression. Plan: CV 15 minute safety checks Continue home medications obtain collateral encourage groups Increase Depakote to 1500mg PO bedtime discharge planning 07/18: Attending groups. Patient reports feeling better that I'm out of the house and around people ; pt reports it is difficult to be alone at home. Pt reports she spoke with her family and her father and sister plan to come and stay with her. showered. per nursing, slept 8 hours. denies SI/HI/VH/AH. Will redraw valproic acid level on 07/20/24. Continue current tx plan. 07/19: Patient reports feeling less depressed ; attending groups. denies SI/HI/VH/AH. Will redraw valproic acid level on 07/20/24. focused on discharged; she is hoping to leave Tuesday or Tuesday. Continue current tx plan. Patient educated on: diagnosis, medication risk/benefits and therapeutic strategies Reason for continued inpatient stay Substantial Risk for: med/psych decompensation Time Spent With Patient Time: Total time managing care of this patient today _20___ minutes.
[2024-07-19 19:54] VITALS: BP 133/82; PULSE 73; RESP 16; TEMP 36.3; O2SAT 97
[2024-07-19] MEDS: Divalproex Sodium ER 500 MG TAB.ER.24H 1500 MG PO (21:51)
[2024-07-19] MEDS: Melatonin 3 MG TABLET 6 MG PO (21:51)
[2024-07-19 21:57] LABS: Glucose, Whole Blood 102 mg/dL (60-115)
[2024-07-19] MEDS: polyethylene glycoL 3350 17 GM POWD.PACK PO (21:59)
[2024-07-20 07:15] VITALS: BP 115/75; PULSE 91; RESP 14; TEMP 36.4; O2SAT 99
[2024-07-20 08:12] LABS: Ammonia 68 umol/L (13-55)
[2024-07-20 08:19] LABS: Valproate 78.2 mcg/mL (50.0-100.0)
[2024-07-20 08:22] LABS: Alanine Aminotransferase 39 U/L (0-31); Alkaline Phosphatase 56 U/L (39-117); Aspartate Amino Transferase 22 U/L (5-31); Bilirubin Direct < 0.2 mg/dL (0.0-0.5); Bilirubin Total 0.2 mg/dL (0.0-1.0); Total Protein 6.6 g/dL (6.5-8.0)
[2024-07-20] MEDS: Acetaminophen 325 MG TABLET 650 MG PO (08:32)
[2024-07-20] MEDS: Cariprazine HCl 3 MG CAPSULE PO (08:33)
[2024-07-20] MEDS: amantadine HCL 100 MG CAPSULE PO ×2 (08:33→21:37)
[2024-07-20] MEDS: Sennosides 8.6 MG TABLET 17.2 MG PO ×2 (08:33→21:37)
[2024-07-20] MEDS: metFORMIN HCl 500 MG TABLET PO ×2 (08:34→17:37)
--- NOTE | 2024-07-20 09:19 | P.PNPSI_ITS ---
Subjective Subjective Date of Service: 07/20/24 Reason For Visit: SI Subjective Notes: Conditional Voluntary Interim History: Patient reports feeling better ; pt stated, I feel like my depression has improved. I'm not suicidal anymore . Pt reports her sister is arriving on Tuesday and she would like to discharge home Tuesday. denies SI/HI/VH/AH. Valproic acid level 78.2 on 07/20/24. Ammonia level 68; lactulose 40gm ordered. Depakote dose decreased to 1250mg PO bedtime; pt aware. Will redraw labs on 07/22/24. Medication Compliance: Yes Side effects from medications: No Attending Groups: Yes Mental Status Exam Mental Status Exam Narrative: Pt is alert and oriented; behavior is cooperative and calm; dressed in casual attire; mood is described as better ; eye contact appropriate; Speech is normal rate, volume and not pressured; thought process is organized; Thought content is on discharge; denies SI/HI/VH/AH. Diagnostics Vital Signs (24Hr): Vital Signs - 24 hr 07/19/24 19:54 07/20/24 07:15 Temperature 97.3 F 97.5 F Pulse Rate 73 91 Respiratory Rate 16 14 Blood Pressure 133/82 115/75 Pulse Oximetry 97 99 Oxygen Delivery Method Room Air Room Air BMI result Body Mass Index 34.6 Labs 07/16/24 13:36 07/17/24 08:09 Labs: Laboratory Results - last 48 hr 07/18/24 07/18/24 07/19/24 12:20 21:09 08:03 POC Glucose 81 111 75 Total Bilirubin Direct Bilirubin AST ALT Alkaline Phosphatase Ammonia Total Protein Albumin Valproic Acid 07/19/24 07/20/24 21:53 07:53 POC Glucose 102 Total Bilirubin 0.2 Direct Bilirubin < 0.2 AST 22 ALT 39 H Alkaline Phosphatase 56 Ammonia 68 H Total Protein 6.6 Albumin 4.0 Valproic Acid 78.2 Medications Medications Current Medications Acetaminophen (Acetaminophen 325 Mg Tablet) 650 mg PO Q6H PRN PRN Reason: Headache/Pain, Scale 1-10 Last Admin: 07/20/24 08:32 Dose: 650 mg Al Hydroxide/Mg Hydroxide (Magnesium Hydrox/Alum Hydrox 30 Ml Oral.Susp) 30 ml PO Q6H PRN PRN Reason: Heartburn/Nausea Last Admin: 07/17/24 20:58 Dose: 30 ml Amantadine HCl (Amantadine Hcl 100 Mg Capsule) 100 mg PO BID [facility] Last Admin: 07/20/24 08:33 Dose: 100 mg Cariprazine (Cariprazine Hcl 3 Mg Capsule) 3 mg PO DAILY [facility] Last Admin: 07/20/24 08:33 Dose: 3 mg Divalproex Sodium (Divalproex Sodium Er 250 Mg Tab.Er.24h) 1,250 mg PO BEDTIME [facility] Hydroxyzine HCl (Hydroxyzine Hcl 25 Mg Tablet) 25 mg PO Q6H PRN PRN Reason: mild anxiety Lactulose (Lactulose 20 Gm/30 Ml Solution) 40 gm PO DAILY [facility] Magnesium Hydroxide (Milk Of Magnesia 30 Ml Oral.Susp) 30 ml PO DAILY PRN PRN Reason: Constipation Melatonin (Melatonin 3 Mg Tablet) 6 mg PO BEDTIME [facility] Last Admin: 07/19/24 21:51 Dose: 6 mg Metformin HCl (Metformin Hcl 500 Mg Tablet) 500 mg PO BIDWM [facility] Last Admin: 07/20/24 08:34 Dose: 500 mg Nicotine Polacrilex (Nicotine Polacrilex 2 Mg Gum) 4 mg BUCCAL Q2H PRN PRN Reason: Nicotine Cravings Polyethylene Glycol (Polyethylene Glycol 3350 17 Gm Powd.Pack) 17 gm PO DAILY PRN PRN Reason: Constipation Last Admin: 07/19/24 21:59 Dose: 17 gm Senna (Sennosides 8.6 Mg Tablet) 17.2 mg PO BID [facility] Last Admin: 07/20/24 08:33 Dose: 17.2 mg Trazodone HCl (Trazodone Hcl 50 Mg Tablet) 50 mg PO BEDTIME MRX1 PRN PRN Reason: Insomnia Allergies Allergies Allergy/AdvReac Type Severity Reaction Status Date / Time cat dander [CATS] Allergy Unknown Unknown Verified 07/16/24 13:03 HAYFEVER Allergy Unknown Unknown Uncoded 07/16/24 13:03 Assessment & Plan Assessment & Plan (1) Bipolar 1 disorder: Status: Acute Code(s): F31.9 - Bipolar disorder, unspecified Plan Patient is a 43-year-old female with history of bipolar disorder who [place] [facility] [place] to [place] ideation with a plan to slit her wrist secondary to increased depression. Plan: CV 15 minute safety checks Continue home medications obtain collateral encourage groups Increase Depakote to 1500mg PO bedtime discharge planning 07/18: Attending groups. Patient reports feeling better that I'm out of the house and around people ; pt reports it is difficult to be alone at home. Pt reports she spoke with her family and her father and sister plan to come and stay with her. showered. per nursing, slept 8 hours. denies SI/HI/VH/AH. Will redraw valproic acid level on 07/20/24. Continue current tx plan. 07/19: Patient reports feeling less depressed ; attending groups. denies SI/HI/VH/AH. Will redraw valproic acid level on 07/20/24. focused on discharged; she is hoping to leave Tuesday or Tuesday. Continue current tx plan. 07/20: Patient reports feeling better ; pt stated, I feel like my depression has improved. I'm not suicidal anymore . Pt reports her sister is arriving on Tuesday and she would like to discharge home Tuesday. denies SI/HI/VH/AH. Valproic acid level 78.2 on 07/20/24. Ammonia level 68; lactulose 40gm ordered. Depakote dose decreased to 1250mg PO bedtime; pt aware. Will redraw labs on 07/22/24. Patient educated on: diagnosis, medication risk/benefits and therapeutic strategies Reason for continued inpatient stay Substantial Risk for: med/psych decompensation Time Spent With Patient Time: Total time managing care of this patient today _20___ minutes.
[2024-07-20] MEDS: Lactulose 20 GM/30 ML SOLUTION 40 GM PO (09:42)
[2024-07-20 20:00] VITALS: BP 125/78; PULSE 83; RESP 16; TEMP 36.4; O2SAT 95
[2024-07-20] MEDS: Divalproex Sodium ER 250 MG TAB.ER.24H 1250 MG PO (21:37)
[2024-07-20] MEDS: Melatonin 3 MG TABLET 6 MG PO (21:37)
[2024-07-20 22:28] LABS: Glucose, Whole Blood 129 mg/dL (60-115)
[2024-07-21 07:20] VITALS: BP 106/67; PULSE 93; RESP 16; TEMP 36.4; O2SAT 99
[2024-07-21 07:38] LABS: Glucose, Whole Blood 82 mg/dL (60-115)
--- NOTE | 2024-07-21 08:10 | P.PNPSI_ITS ---
Subjective Subjective Date of Service: 07/21/24 Reason For Visit: SI Subjective Notes: Conditional Voluntary Healthcare Proxy: No Guardianship: No Medical Problems Affecting Mental Status: Yes (inc ammonia lvl with depakote, diarrhea from lactulose) Interim History: 43 yo who reports depakote level was dec from 1500 to 1200mg and took 1 dose lactulaose but was fairly miserable with the diarrhea- but pt was also on miralax and senna, though she took senna last pm and this am she has not taken miralax- suggested she hold any today and just take lactulose 1 more time- as having blood test tuesday pm to recheck ammonia lvl - Pt agreed denies any sys of ammonia like confusion or gait imbalance- denies si , or / Medication Compliance: Yes Side effects from medications: No Attending Groups: Yes Review of Systems as discussed above Medical Review of Systems: unchanged Mental Status Exam Mental Status Exam Patient Appearance: Appropriate Patient Orientation: Person, Place, Time and Situation Level of Consciousness: Awake and Alert Patient Behavior: Appropriate, Cooperative and Good Eye Contact Mood Description: Calm Affect Description: Constricted Patient Cognition Impaired: No Ability to Follow Directions: Good Speech Pattern: Clear Hallucinations: None Delusions: Not Present Thought Process: Intact and Goal Oriented Depressive Symptoms: Increased Anxiety Judgement: Fair Diagnostics Vital Signs (24Hr): Vital Signs - 24 hr 07/20/24 20:00 Temperature 97.6 F Pulse Rate 83 Respiratory Rate 16 Blood Pressure 125/78 Pulse Oximetry 95 Oxygen Delivery Method Room Air BMI result Body Mass Index 34.6 Labs 07/16/24 13:36 07/17/24 08:09 Labs: Laboratory Results - last 48 hr 07/19/24 07/19/24 07/20/24 08:03 21:53 07:53 POC Glucose 75 102 Total Bilirubin 0.2 Direct Bilirubin < 0.2 AST 22 ALT 39 H Alkaline Phosphatase 56 Ammonia 68 H Total Protein 6.6 Albumin 4.0 Valproic Acid 78.2 07/20/24 07/21/24 22:24 07:31 POC Glucose 129 H 82 Total Bilirubin Direct Bilirubin AST ALT Alkaline Phosphatase Ammonia Total Protein Albumin Valproic Acid Medications Medications Current Medications Acetaminophen (Acetaminophen 325 Mg Tablet) 650 mg PO Q6H PRN PRN Reason: Headache/Pain, Scale 1-10 Last Admin: 07/20/24 08:32 Dose: 650 mg Al Hydroxide/Mg Hydroxide (Magnesium Hydrox/Alum Hydrox 30 Ml Oral.Susp) 30 ml PO Q6H PRN PRN Reason: Heartburn/Nausea Last Admin: 07/17/24 20:58 Dose: 30 ml Amantadine HCl (Amantadine Hcl 100 Mg Capsule) 100 mg PO BID [facility] Last Admin: 07/20/24 21:37 Dose: 100 mg Cariprazine (Cariprazine Hcl 3 Mg Capsule) 3 mg PO DAILY [facility] Last Admin: 07/20/24 08:33 Dose: 3 mg Divalproex Sodium (Divalproex Sodium Er 250 Mg Tab.Er.24h) 1,250 mg PO BEDTIME [facility] Last Admin: 07/20/24 21:37 Dose: 1,250 mg Hydroxyzine HCl (Hydroxyzine Hcl 25 Mg Tablet) 25 mg PO Q6H PRN PRN Reason: mild anxiety Lactulose (Lactulose 20 Gm/30 Ml Solution) 40 gm PO DAILY [facility] Last Admin: 07/20/24 09:42 Dose: 40 gm Magnesium Hydroxide (Milk Of Magnesia 30 Ml Oral.Susp) 30 ml PO DAILY PRN PRN Reason: Constipation Melatonin (Melatonin 3 Mg Tablet) 6 mg PO BEDTIME [facility] Last Admin: 07/20/24 21:37 Dose: 6 mg Metformin HCl (Metformin Hcl 500 Mg Tablet) 500 mg PO BIDWM [facility] Last Admin: 07/20/24 17:37 Dose: 500 mg Nicotine Polacrilex (Nicotine Polacrilex 2 Mg Gum) 4 mg BUCCAL Q2H PRN PRN Reason: Nicotine Cravings Polyethylene Glycol (Polyethylene Glycol 3350 17 Gm Powd.Pack) 17 gm PO DAILY PRN PRN Reason: Constipation Last Admin: 07/19/24 21:59 Dose: 17 gm Senna (Sennosides 8.6 Mg Tablet) 17.2 mg PO BID [facility] Last Admin: 07/20/24 21:37 Dose: 17.2 mg Trazodone HCl (Trazodone Hcl 50 Mg Tablet) 50 mg PO BEDTIME MRX1 PRN PRN Reason: Insomnia Allergies Allergies Allergy/AdvReac Type Severity Reaction Status Date / Time cat dander [CATS] Allergy Unknown Unknown Verified 07/16/24 13:03 HAYFEVER Allergy Unknown Unknown Uncoded 07/16/24 13:03 Assessment & Plan Assessment & Plan (1) Bipolar 1 disorder: Status: Acute Code(s): F31.9 - Bipolar disorder, unspecified Plan Patient is a 43-year-old female with history of bipolar disorder who self [place] [facility] [place] ideation with a plan to slit her wrist secondary to increased depression. Plan: CV 15 minute safety checks Continue home medications obtain collateral encourage groups Increase Depakote to 1500mg PO bedtime discharge planning 07/18: Attending groups. Patient reports feeling better that I'm out of the house and around people ; pt reports it is difficult to be alone at home. Pt reports she spoke with her family and her father and sister plan to come and stay with her. showered. per nursing, slept 8 hours. denies SI/HI/VH/AH. Will redraw valproic acid level on 07/20/24. Continue current tx plan. 07/19: Patient reports feeling less depressed ; attending groups. denies SI/HI/VH/AH. Will redraw valproic acid level on 07/20/24. focused on discharged; she is hoping to leave Tuesday or Tuesday. Continue current tx plan. 07/20: Patient reports feeling better ; pt stated, I feel like my depression has improved. I'm not suicidal anymore . Pt reports her sister is arriving on Tuesday and she would like to discharge home Tuesday. denies SI/HI/VH/AH. Valproic acid level 78.2 on 07/20/24. Ammonia level 68; lactulose 40gm ordered. Depakote dose decreased to 1250mg PO bedtime; pt aware. Will redraw labs on 07/22/24. 07/21 - pt concerned about further lactulose- - suggested 1 more dose and hold other stool meds for 24 hr- Patient educated on: medication risk/benefits Informed Consent: understands Reason for continued inpatient stay Substantial Risk for: rapid decompensation and med/psych decompensation Time Spent With Patient Time: Total time managing care of this patient today ____ minutes.
[2024-07-21] MEDS: Sennosides 8.6 MG TABLET 17.2 MG PO (08:51)
[2024-07-21] MEDS: amantadine HCL 100 MG CAPSULE PO ×2 (08:52→21:41)
[2024-07-21] MEDS: metFORMIN HCl 500 MG TABLET PO ×2 (08:53→17:11)
[2024-07-21] MEDS: Cariprazine HCl 3 MG CAPSULE PO (08:53)
[2024-07-21] MEDS: Lactulose 20 GM/30 ML SOLUTION 40 GM PO (12:54)
[2024-07-21 20:00] VITALS: BP 128/77; PULSE 79; RESP 16; TEMP 36.6; O2SAT 99
[2024-07-21] MEDS: Divalproex Sodium ER 250 MG TAB.ER.24H 1250 MG PO (21:40)
[2024-07-21] MEDS: Melatonin 3 MG TABLET 6 MG PO (21:41)
[2024-07-21 22:26] LABS: Glucose, Whole Blood 128 mg/dL (60-115)
[2024-07-22 08:00] VITALS: BP 115/69; PULSE 96; TEMP 36.9; O2SAT 99
[2024-07-22 08:13] LABS: Glucose, Whole Blood 93 mg/dL (60-115)
[2024-07-22] MEDS: metFORMIN HCl 500 MG TABLET PO ×2 (08:57→16:55)
[2024-07-22] MEDS: amantadine HCL 100 MG CAPSULE PO ×2 (08:57→21:13)
[2024-07-22] MEDS: Cariprazine HCl 3 MG CAPSULE PO (08:57)
[2024-07-22] MEDS: Lactulose 20 GM/30 ML SOLUTION 40 GM PO (08:58)
--- NOTE | 2024-07-22 11:18 | HO.PSYCHPN ---
Subjective Subjective Date of Service: 07/22/24 Reason For Visit: SI Subjective Notes: Conditional Voluntary Healthcare Proxy: No Guardianship: No Medical Problems Affecting Mental Status: Yes (recent elevated ammonia) Interim History: 43 yo got lactulose x 3 days - feeling tired? s/e - on lower depakote 1250mg from 1500 and going to have lab test tonight for checking ammonia lvl before dc- she wonders if this will help her depression will fu with outpatient providers Medication Compliance: Yes Side effects from medications: Yes (? fatigue) Attending Groups: Yes Review of Systems Acute medical concerns: Yes recheck ammonia elevation Medical Review of Systems: changed Review of Systems: fatigue complaint Mental Status Exam Mental Status Exam Patient Appearance: Well Grooomed and Appropriate Patient Orientation: Person, Place, Time and Situation Level of Consciousness: Awake and Alert Patient Behavior: Appropriate, Cooperative and Good Eye Contact Mood Description: Sad Affect Description: Constricted Patient Cognition Impaired: No Ability to Follow Directions: Good Speech Pattern: Clear Hallucinations: None Delusions: Not Present Thought Process: Intact and Goal Oriented Depressive Symptoms: Increased Anxiety and Loss of Energy Judgement: Good Diagnostics Vital Signs (24Hr): Vital Signs - 24 hr 07/21/24 20:00 07/22/24 08:00 Temperature 97.8 F 98.4 F Pulse Rate 79 96 Respiratory Rate 16 Blood Pressure 128/77 115/69 Pulse Oximetry 99 99 Oxygen Delivery Method Room Air Room Air BMI result Body Mass Index 34.6 Labs 07/16/24 13:36 07/17/24 08:09 Labs: Laboratory Results - last 48 hr 07/20/24 07/21/24 07/21/24 22:24 07:31 22:21 POC Glucose 129 H 82 128 H 07/22/24 08:08 POC Glucose 93 Medications Medications Current Medications Acetaminophen (Acetaminophen 325 Mg Tablet) 650 mg PO Q6H PRN PRN Reason: Headache/Pain, Scale 1-10 Last Admin: 07/20/24 08:32 Dose: 650 mg Al Hydroxide/Mg Hydroxide (Magnesium Hydrox/Alum Hydrox 30 Ml Oral.Susp) 30 ml PO Q6H PRN PRN Reason: Heartburn/Nausea Last Admin: 07/17/24 20:58 Dose: 30 ml Amantadine HCl (Amantadine Hcl 100 Mg Capsule) 100 mg PO BID [place] Last Admin: 07/22/24 08:57 Dose: 100 mg Cariprazine (Cariprazine Hcl 3 Mg Capsule) 3 mg PO DAILY [facility] Last Admin: 07/22/24 08:57 Dose: 3 mg Divalproex Sodium (Divalproex Sodium Er 250 Mg Tab.Er.24h) 1,250 mg PO BEDTIME [facility] Last Admin: 07/21/24 21:40 Dose: 1,250 mg Hydroxyzine HCl (Hydroxyzine Hcl 25 Mg Tablet) 25 mg PO Q6H PRN PRN Reason: mild anxiety Magnesium Hydroxide (Milk Of Magnesia 30 Ml Oral.Susp) 30 ml PO DAILY PRN PRN Reason: Constipation Melatonin (Melatonin 3 Mg Tablet) 6 mg PO BEDTIME [facility] Last Admin: 07/21/24 21:41 Dose: 6 mg Metformin HCl (Metformin Hcl 500 Mg Tablet) 500 mg PO BIDWM [facility] Last Admin: 07/22/24 08:57 Dose: 500 mg Nicotine Polacrilex (Nicotine Polacrilex 2 Mg Gum) 4 mg BUCCAL Q2H PRN PRN Reason: Nicotine Cravings Polyethylene Glycol (Polyethylene Glycol 3350 17 Gm Powd.Pack) 17 gm PO DAILY PRN PRN Reason: Constipation Last Admin: 07/19/24 21:59 Dose: 17 gm Senna (Sennosides 8.6 Mg Tablet) 17.2 mg PO BID [facility] Last Admin: 07/21/24 08:51 Dose: 17.2 mg Trazodone HCl (Trazodone Hcl 50 Mg Tablet) 50 mg PO BEDTIME MRX1 PRN PRN Reason: Insomnia Allergies Allergies Allergy/AdvReac Type Severity Reaction Status Date / Time cat dander [CATS] Allergy Unknown Unknown Verified 07/16/24 13:03 HAYFEVER Allergy Unknown Unknown Uncoded 07/16/24 13:03 Assessment & Plan Assessment & Plan (1) Bipolar 1 disorder: Status: Acute Code(s): F31.9 - Bipolar disorder, unspecified Plan Patient is a 43-year-old female with history of bipolar disorder who self presented to [facility] ER due to suicidal ideation with a plan to slit her wrist secondary to increased depression. Plan: CV 15 minute safety checks Continue home medications obtain collateral encourage groups Increase Depakote to 1500mg PO bedtime discharge planning 07/18: Attending groups. Patient reports feeling better that I'm out of the house and around people ; pt reports it is difficult to be alone at home. Pt reports she spoke with her family and her father and sister plan to come and stay with her. showered. per nursing, slept 8 hours. denies SI/HI/VH/AH. Will redraw valproic acid level on 07/20/24. Continue current tx plan. 07/19: Patient reports feeling less depressed ; attending groups. denies SI/HI/VH/AH. Will redraw valproic acid level on 07/20/24. focused on discharged; she is hoping to leave Tuesday or Tuesday. Continue current tx plan. 07/20: Patient reports feeling better ; pt stated, I feel like my depression has improved. I'm not suicidal anymore . Pt reports her sister is arriving on Tuesday and she would like to discharge home Tuesday. denies SI/HI/VH/AH. Valproic acid level 78.2 on 07/20/24. Ammonia level 68; lactulose 40gm ordered. Depakote dose decreased to 1250mg PO bedtime; pt aware. Will redraw labs on 07/22/24. 07/21 - pt concerned about further lactulose- - suggested 1 more dose and hold other stool meds for 24 hr- 07/22 got last dose lactulose- held other constipation meds till tomorrow- pending ammonia lvl - decreased energy and some depression complaints- no si - Patient educated on: medication risk/benefits Informed Consent: understands Reason for continued inpatient stay Substantial Risk for: inability to function and rapid decompensation Time Spent With Patient Time: Total time managing care of this patient today ____ minutes.
[2024-07-22 19:14] LABS: Alanine Aminotransferase 29 U/L (0-31); Alkaline Phosphatase 55 U/L (39-117); Aspartate Amino Transferase 20 U/L (5-31); Bilirubin Direct 0.2 mg/dL (0.0-0.5); Bilirubin Total 0.4 mg/dL (0.0-1.0); Total Protein 6.8 g/dL (6.5-8.0); Valproate 56.5 mcg/mL (50.0-100.0)
[2024-07-22 19:16] LABS: Ammonia 27 umol/L (13-55)
[2024-07-22 19:30] VITALS: BP 124/83; PULSE 81; RESP 16; TEMP 36.4; O2SAT 100
[2024-07-22 21:11] LABS: Glucose, Whole Blood 84 mg/dL (60-115)
[2024-07-22] MEDS: Melatonin 3 MG TABLET 6 MG PO (21:12)
[2024-07-22] MEDS: Divalproex Sodium ER 250 MG TAB.ER.24H 1250 MG PO (21:12)
[2024-07-23 07:39] VITALS: BP 122/61; PULSE 97; RESP 16; TEMP 37.1; O2SAT 100
[2024-07-23 08:02] LABS: Glucose, Whole Blood 89 mg/dL (60-115)
[2024-07-23] MEDS: Cariprazine HCl 3 MG CAPSULE PO (08:22)
[2024-07-23] MEDS: amantadine HCL 100 MG CAPSULE PO (08:22)
[2024-07-23] MEDS: metFORMIN HCl 500 MG TABLET PO (08:22)
--- NOTE | 2024-07-23 09:51 | PM.PSYDC ---
DS: Providers Provider Date of Service: 07/23/24 Date of admission: 07/16/24 18:22 Date of discharge: 07/23/24 Primary care physician: Erin Beckman PA-C Admitting clinician: Lydia Kline Attending physician on admission: Gera Purvis Attending physician on discharge: Gera Purvis Discharging clinician: Lydia Kline DS: Diagnosis Discharge Diagnosis (1) Bipolar 1 disorder: Status: Acute DS: Medications Discharge Medications Home Medications: Home Medications ?Medication ?Instructions ?Recorded ?Confirmed amantadine HCl 100 mg capsule 100 mg PO BID 11/17/21 07/16/24 cariprazine 3 mg capsule (Vraylar) 3 mg PO QAM 07/16/24 07/16/24 melatonin 3 mg tablet 6 mg PO QPM 07/16/24 07/16/24 polyethylene glycol 3350 17 17 g PO DAILY PRN Constipation 07/16/24 07/16/24 gram/dose oral powder (Miralax) sennosides 8.6 mg tablet (senna) 17.2 mg PO BID 07/16/24 07/16/24 tirzepatide 7.5 mg/0.5 mL 7.5 mg subcut QWEEK 07/16/24 07/16/24 subcutaneous pen injector (Mounjaro) Previous Rx's ?Medication ?Instructions ?Recorded divalproex 250 mg tablet,extended 1,250 mg (5 x 250 mg) PO BEDTIME 7 07/23/24 release 24 hr days #35 tabs metformin 500 mg tablet 500 mg PO BIDWM #0 tabs 07/23/24 Mental Status Exam Mental Status Exam Narrative: Pt is alert and oriented; behavior is cooperative and calm; dressed in casual attire; mood is described as good ; eye contact appropriate; Speech is normal rate, volume and not pressured; thought process is organized; Thought content is on discharge; denies SI/HI/VH/AH. Data Data Completed and Pending Completed studies during hospitalization [Text1]: 07/16/24 07/16/24 07/17/24 13:36 16:45 08:09 WBC 4.9 RBC 4.58 Hgb 12.5 Hct 38.1 MCV 83.2 MCH 27.3 MCHC 32.8 RDW 15.4 Plt Count 216 MPV 10.6 Immature Gran % (Auto) 0.2 Neut % (Auto) 51.6 Lymph % (Auto) 36.3 [place] % (Auto) 8.2 Eos % (Auto) 3.1 Baso % (Auto) 0.6 Lymph # (Auto) 1.8 [place] # (Auto) 0.4 Eos # (Auto) 0.2 Baso # (Auto) 0.0 Abs Immat Gran (auto) 0.01 Absolute Neuts (auto) 2.5 Absolute Nucleated RBC 0.000 Nucleated RBC % (auto) 0.0 Sodium 139 137 Potassium 3.7 3.9 Chloride 106 108 Carbon Dioxide 25 20 L Anion Gap 12 13 BUN 11 12 Creatinine 0.92 0.93 Estim Creat Clear Calc 94.2 93.6 Estimated GFR > 60 > 60 POC Glucose Random Glucose 78 81 Estimat Average Glucose 105 Hemoglobin A1c % 5.3 Calcium 9.0 9.0 Total Bilirubin 0.4 0.4 Direct Bilirubin AST 27 26 ALT 32 H 27 Alkaline Phosphatase 52 55 Ammonia Total Protein 6.9 6.9 Albumin 4.1 4.1 Triglycerides 80 Cholesterol 177 LDL Cholesterol, Calc 99 HDL Cholesterol 62 Vitamin B12 595 Folate 7.3 TSH 1.92 Hold Yellow Top Urine Color Yellow Urine Appearance Clear Urine pH 6.0 Ur Specific [place] 1.025 Urine Protein Negative Urine Glucose (UA) Negative Urine Ketones Trace Urine Blood Negative Urine Nitrite Negative Ur Leukocyte Esterase Trace H Urine RBC 0-2 Urine WBC 0-5 Ur Squamous Epith Cells 3-5 Urine Bacteria Trace Hyaline Casts 0-2 Urine Test NEGATIVE Salicylates < 5.0 L Urine Opiates Screen Not Detected Ur Buprenorphine Scrn Not Detected Ur Oxycodone Screen Not Detected Urine Methadone Screen Not Detected Urine Fentanyl Screen Not Detected Acetaminophen < 3 Ur Barbiturates Screen Not Detected Valproic Acid Ur Phencyclidine Scrn Not Detected Ur Amphetamines Screen Not Detected U Benzodiazepines Scrn Not Detected Urine Cocaine Screen Not Detected U Marijuana (THC) Screen Not Detected Ethyl Alcohol < 10 07/17/24 07/18/24 07/18/24 11:55 12:20 21:09 WBC RBC Hgb Hct MCV MCH MCHC RDW Plt Count MPV Immature Gran % (Auto) Neut % (Auto) Lymph % (Auto) [place] % (Auto) Eos % (Auto) Baso % (Auto) Lymph # (Auto) [place] # (Auto) Eos # (Auto) Baso # (Auto) Abs Immat Gran (auto) Absolute Neuts (auto) Absolute Nucleated RBC Nucleated RBC % (auto) Sodium Potassium Chloride Carbon Dioxide Anion Gap BUN Creatinine Estim Creat Clear Calc Estimated GFR POC Glucose 81 111 Random Glucose Estimat Average Glucose Hemoglobin A1c % Calcium Total Bilirubin 0.4 Direct Bilirubin 0.1 AST 24 ALT 29 Alkaline Phosphatase 52 Ammonia 28 Total Protein 6.5 Albumin 4.1 Triglycerides Cholesterol LDL Cholesterol, Calc HDL Cholesterol Vitamin B12 Folate TSH Hold Yellow Top Urine Color Urine Appearance Urine pH Ur Specific [place] Urine Protein Urine Glucose (UA) Urine Ketones Urine Blood Urine Nitrite Ur Leukocyte Esterase Urine RBC Urine WBC Ur Squamous Epith Cells Urine Bacteria Hyaline Casts Urine Test Salicylates Urine Opiates Screen Ur Buprenorphine Scrn Ur Oxycodone Screen Urine Methadone Screen Urine Fentanyl Screen Acetaminophen Ur Barbiturates Screen Valproic Acid 60.8 Ur Phencyclidine Scrn Ur Amphetamines Screen U Benzodiazepines Scrn Urine Cocaine Screen U Marijuana (THC) Screen Ethyl Alcohol 07/19/24 07/19/24 07/20/24 08:03 21:53 07:53 WBC RBC Hgb Hct MCV MCH MCHC RDW Plt Count MPV Immature Gran % (Auto) Neut % (Auto) Lymph % (Auto) [place] % (Auto) Eos % (Auto) Baso % (Auto) Lymph # (Auto) [place] # (Auto) Eos # (Auto) Baso # (Auto) Abs Immat Gran (auto) Absolute Neuts (auto) Absolute Nucleated RBC Nucleated RBC % (auto) Sodium Potassium Chloride Carbon Dioxide Anion Gap BUN Creatinine Estim Creat Clear Calc Estimated GFR POC Glucose 75 102 Random Glucose Estimat Average Glucose Hemoglobin A1c % Calcium Total Bilirubin 0.2 Direct Bilirubin < 0.2 AST 22 ALT 39 H Alkaline Phosphatase 56 Ammonia 68 H Total Protein 6.6 Albumin 4.0 Triglycerides Cholesterol LDL Cholesterol, Calc HDL Cholesterol Vitamin B12 Folate TSH Hold Yellow Top Urine Color Urine Appearance Urine pH Ur Specific [place] Urine Protein Urine Glucose (UA) Urine Ketones Urine Blood Urine Nitrite Ur Leukocyte Esterase Urine RBC Urine WBC Ur Squamous Epith Cells Urine Bacteria Hyaline Casts Urine Test Salicylates Urine Opiates Screen Ur Buprenorphine Scrn Ur Oxycodone Screen Urine Methadone Screen Urine Fentanyl Screen Acetaminophen Ur Barbiturates Screen Valproic Acid 78.2 Ur Phencyclidine Scrn Ur Amphetamines Screen U Benzodiazepines Scrn Urine Cocaine Screen U Marijuana (THC) Screen Ethyl Alcohol 07/20/24 07/21/24 07/21/24 22:24 07:31 22:21 WBC RBC Hgb Hct MCV MCH MCHC RDW Plt Count MPV Immature Gran % (Auto) Neut % (Auto) Lymph % (Auto) [place] % (Auto) Eos % (Auto) Baso % (Auto) Lymph # (Auto) [place] # (Auto) Eos # (Auto) Baso # (Auto) Abs Immat Gran (auto) Absolute Neuts (auto) Absolute Nucleated RBC Nucleated RBC % (auto) Sodium Potassium Chloride Carbon Dioxide Anion Gap BUN Creatinine Estim Creat Clear Calc Estimated GFR POC Glucose 129 H 82 128 H Random Glucose Estimat Average Glucose Hemoglobin A1c % Calcium Total Bilirubin Direct Bilirubin AST ALT Alkaline Phosphatase Ammonia Total Protein Albumin Triglycerides Cholesterol LDL Cholesterol, Calc HDL Cholesterol Vitamin B12 Folate TSH Hold Yellow Top Urine Color Urine Appearance Urine pH Ur Specific [place] Urine Protein Urine Glucose (UA) Urine Ketones Urine Blood Urine Nitrite Ur Leukocyte Esterase Urine RBC Urine WBC Ur Squamous Epith Cells Urine Bacteria Hyaline Casts Urine Test Salicylates Urine Opiates Screen Ur Buprenorphine Scrn Ur Oxycodone Screen Urine Methadone Screen Urine Fentanyl Screen Acetaminophen Ur Barbiturates Screen Valproic Acid Ur Phencyclidine Scrn Ur Amphetamines Screen U Benzodiazepines Scrn Urine Cocaine Screen U Marijuana (THC) Screen Ethyl Alcohol 07/22/24 07/22/24 07/22/24 08:08 18:49 19:03 WBC RBC Hgb Hct MCV MCH MCHC RDW Plt Count MPV Immature Gran % (Auto) Neut % (Auto) Lymph % (Auto) [place] % (Auto) Eos % (Auto) Baso % (Auto) Lymph # (Auto) [place] # (Auto) Eos # (Auto) Baso # (Auto) Abs Immat Gran (auto) Absolute Neuts (auto) Absolute Nucleated RBC Nucleated RBC % (auto) Sodium Potassium Chloride Carbon Dioxide Anion Gap BUN Creatinine Estim Creat Clear Calc Estimated GFR POC Glucose 93 Random Glucose Estimat Average Glucose Hemoglobin A1c % Calcium Total Bilirubin 0.4 Direct Bilirubin 0.2 AST 20 ALT 29 Alkaline Phosphatase 55 Ammonia 27 Total Protein 6.8 Albumin 4.0 Triglycerides Cholesterol LDL Cholesterol, Calc HDL Cholesterol Vitamin B12 Folate TSH Hold Yellow Top See Note Urine Color Urine Appearance Urine pH Ur Specific [place] Urine Protein Urine Glucose (UA) Urine Ketones Urine Blood Urine Nitrite Ur Leukocyte Esterase Urine RBC Urine WBC Ur Squamous Epith Cells Urine Bacteria Hyaline Casts Urine Test Salicylates Urine Opiates Screen Ur Buprenorphine Scrn Ur Oxycodone Screen Urine Methadone Screen Urine Fentanyl Screen Acetaminophen Ur Barbiturates Screen Valproic Acid 56.5 Ur Phencyclidine Scrn Ur Amphetamines Screen U Benzodiazepines Scrn Urine Cocaine Screen U Marijuana (THC) Screen Ethyl Alcohol 07/22/24 07/23/24 21:07 07:52 WBC RBC Hgb Hct MCV MCH MCHC RDW Plt Count MPV Immature Gran % (Auto) Neut % (Auto) Lymph % (Auto) [place] % (Auto) Eos % (Auto) Baso % (Auto) Lymph # (Auto) [place] # (Auto) Eos # (Auto) Baso # (Auto) Abs Immat Gran (auto) Absolute Neuts (auto) Absolute Nucleated RBC Nucleated RBC % (auto) Sodium Potassium Chloride Carbon Dioxide Anion Gap BUN Creatinine Estim Creat Clear Calc Estimated GFR POC Glucose 84 89 Random Glucose Estimat Average Glucose Hemoglobin A1c % Calcium Total Bilirubin Direct Bilirubin AST ALT Alkaline Phosphatase Ammonia Total Protein Albumin Triglycerides Cholesterol LDL Cholesterol, Calc HDL Cholesterol Vitamin B12 Folate TSH Hold Yellow Top Urine Color Urine Appearance Urine pH Ur Specific [place] Urine Protein Urine Glucose (UA) Urine Ketones Urine Blood Urine Nitrite Ur Leukocyte Esterase Urine RBC Urine WBC Ur Squamous Epith Cells Urine Bacteria Hyaline Casts Urine Test Salicylates Urine Opiates Screen Ur Buprenorphine Scrn Ur Oxycodone Screen Urine Methadone Screen Urine Fentanyl Screen Acetaminophen Ur Barbiturates Screen Valproic Acid Ur Phencyclidine Scrn Ur Amphetamines Screen U Benzodiazepines Scrn Urine Cocaine Screen U Marijuana (THC) Screen Ethyl Alcohol DS: Summary Hospital Course Hospital Course: Patient is a 43-year-old female with history of bipolar disorder who self presented to [facility] ER due to suicidal ideation with a plan to slit her wrist secondary to increased depression. Per crisis report, patient presented to ER endorsing suicidal ideation with a plan to slit her wrists. Patient reports that she was at her PCP appointment and she expressed to her provider that she was suicidal with a plan and was recommended to go to [facility]. Patient reports increasing depression and intrusive thoughts geared towards harming herself. Patient was recently at [facility] and feels it was not helpful. Patient reports she has been feeling suicidal for 2 weeks. She reports she was placed on Wellbutrin and feels that it made things worse. denies HI/VH/AH. She reports sleep and appetite are okay. Denies substance abuse. History of alcohol use disorder but has been sober for the last 9 years. During admission assessment, patient presents alert and oriented x3. Calm and cooperative. Patient reports feeling depressed; patient stated, I have been depressed for a couple of months and started feeling suicidal. I have not felt that way in a long time. I was just inpatient at [facility] and then gave me Wellbutrin, but it made me feel worse and more suicidal. I had a doctor's appointment on Tuesday and they said I should go inpatient . Patient reports she feels stuck in life and would like to move closer to family in [place] however, can not afford to financially. denies HI/VH/AH. Patient reports she has outpatient psychiatric providers through [facility]. History of multiple inpatient psychiatric hospitalizations. Denies substance use. She reports sleep and appetite are good. Discussed medications; patient stated that she does not want any new medications introduced however, would like her Depakote increased. Valproic acid level 60.8 on 07/17/24. Plan: CV 15 minute safety checks Continue home medications obtain collateral encourage groups Increase Depakote to 1500mg PO bedtime discharge planning Attending groups. Patient reports feeling better that I'm out of the house and around people ; pt reports it is difficult to be alone at home. Pt reports she spoke with her family and her father and sister plan to come and stay with her. showered. per nursing, slept 8 hours. denies SI/HI/VH/AH. Will redraw valproic acid level on 07/20/24. Continue current tx plan. Patient reports feeling less depressed ; attending groups. denies SI/HI/VH/AH. Will redraw valproic acid level on 07/20/24. focused on discharged; she is hoping to leave Tuesday or Tuesday. Continue current tx plan. Patient reports feeling better ; pt stated, I feel like my depression has improved. I'm not suicidal anymore . Pt reports her sister is arriving on Tuesday and she would like to discharge home Tuesday. denies SI/HI/VH/AH. Valproic acid level 78.2 on 07/20/24. Ammonia level 68; lactulose 40gm ordered. Depakote dose decreased to 1250mg PO bedtime; pt aware. Will redraw labs on 07/22/24. pt concerned about further lactulose- - suggested 1 more dose and hold other stool meds for 24 hr- got last dose lactulose- held other constipation meds till tomorrow- pending ammonia lvl - decreased energy and some depression complaints- no si - Patient reports feeling better and stable ; denies SI/HI/VH/AH. Ammonia level 27, Valproic acid level 56.6 on 07/22/24. Patient reports she plans on following up with her outpatient providers. Status at Discharge Cognitive/behavioral status at discharge: Patient has insight and demonstrates good judgment in terms of wanting to pursue treatment. Patient has a safety plan that includes presenting to the closest ER or calling 911 if feeling unsafe. Functional status at discharge: independent ambulation Overall status at discharge: patient is back to baseline Time Spent with Patient Time attestation: Total time managing care of this patient today _20___ minutes. Time spent: Less than 30 minutes Discharge Plan Discharge Anticipated Discharge Date/Time: 07/23/24 11:00 Patient Disposition: Home, Self-Care Discharge Diagnosis: Bipolar d/o Referrals: Nathaly Rhodes ([facility]) [Other] - 07/26/24 (Follow up with outpatient providers. ) Kenya Waldrop (therapist) [Other] - 07/24/24 (Follow up with outpatient providers. ) Erin Beckman PA-C [Primary Care Provider] - 08/07/24 7:45 am (07-20-24 Your follow up appt has been scheduled with Dr. Barbara Waldrop on 08-07-24 @ 7:45am) Discharge Medications: New metformin 500 mg Tablet 500 mg PO BIDWM Qty: 0 0RF divalproex 250 mg Tablet Extended Release 24 Hr 1,250 mg PO BEDTIME 7 Days Qty: 35 3RF Continued sennosides [senna] 8.6 mg tablet 17.2 mg PO BID melatonin 3 mg tablet 6 mg PO QPM polyethylene glycol 3350 [Miralax] 17 gram/dose Powder 17 g PO DAILY PRN (Reason: Constipation) Vraylar 3 mg capsule 3 mg PO QAM Mounjaro 7.5 mg/0.5 mL pen injector 7.5 mg subcut QWEEK amantadine HCl 100 mg capsule 100 mg PO BID Discontinued divalproex 500 mg tablet extended release 24 hr 500 mg PO BID Discharge Orders: Discharge Order (Routine); Ordered 07/23/24 Ordered By: Lydia Kline Diet: Regular diet Activity on Discharge: As tolerated Stand Alone Forms: Patient Portal Discharge page, Community Support Print Language: German Care Plan Goals: Maintain mood and safe behaviors Take medications as prescribed Practice coping skills Continue with outpatient providers and reach out to them as needed Health Concerns: Mood stability and behaviors Plan of Treatment: Follow up with your PCP, psychiatric provider and other outpatient providers regarding above concerns Take medications as prescribed Assessment: Patient has insight and demonstrates good judgment in terms of wanting to pursue treatment. Patient has a safety plan that includes presenting to the closest ER or calling 911 if feeling unsafe. Discharge Date/Time: 07/23/24 11:07
--- NOTE | 2024-07-23 11:28 | PC.NURSE ---
Patient easily engaged. Reports mood continues depressed however improved. Feels ready for discharge. Denies SI/HI plan or intent. Sister here from [facility] to stay with her following discharge. Patient grateful she will not be alone. Denies feeling anxious. Denies perceptual disturbances, no overt psychosis or expressed delusions. Discharge paperwork reviewed with patient reports understanding. Discharge appointments reviewed reports understanding. Medications reviewed reports understanding. All belongings taken with patient. Crisis numbers provided, resource booklet provided to patient.
== END 2024-07-23 11:07 | disposition home or self-care (01) | DRG 885 ==
LOC: HO.ED 14:33 → HO.PADLT16 18:33
PROVIDERS: Physician Assistant; Admitting Provider Social Worker; Emergency Provider Emergency Medicine; PCP Physician Assistant Medical; Responsible Provider Registered Nurse; Visit Provider Psychiatry & Neurology Psychiatry
DX: F31.9 Bipolar disorder, unspecified (principal); R45.851 Suicidal ideations; Z79.84 Long term (current) use of oral hypoglycemic drugs; Z79.85 Long-term (current) use of injectable non-insulin antidiabetic drugs; Z79.899 Other long term (current) drug therapy
CPT/HCPCS: 36415; 80053; 80061; 80076; 80143; 80164; 80179; 80307; 81001; 81025; 82140; 82607; 82746; 82947; 83036; 84443; 85025; 99285; S9485

== ENCOUNTER → 2024-07-16 18:22 | Outpatient (BNV) | payer MEDICARE, MEDICAID, SELFPAY | PROVIDERS: Admitting Provider Social Worker; Emergency Provider Emergency Medicine; PCP Physician Assistant Medical; Responsible Provider Registered Nurse; Visit Provider Registered Nurse | DX: F31.4 Bipolar disorder, current episode depressed, severe, without psychotic features (principal) | CPT/HCPCS: 90792; 99232 ==